=== PATIENT | female | born 1950 | race Caucasian/White ===

== ENCOUNTER → 2023-05-07 14:03 | Outpatient (BNVA) | payer MEDICARE, MEDICAID, SELFPAY | PROVIDERS: PCP Family Medicine; Visit Provider Internal Medicine | DX: M19.042 Primary osteoarthritis, left hand (principal); R79.82 Elevated C-reactive protein (CRP) | CPT/HCPCS: 36415; 73120; 80053; 83516; 85025; 85651; 86140; 86160; 86162; 86200; 86235; 86255; 86376; 86480; 86704; 86803; 87340; 99204 ==